=== PATIENT | male | born 1965 | race Caucasian/White ===

== ENCOUNTER 2017-09-02 09:04 | Day surgery (SDC) | payer BC, MEDICAID ==
[2017-09-02] MEDS ORDERED: LIDOCAINE 2% MDV (20MG/ML) 20ML VIAL IV ONE (16:10)
[2017-09-02] MEDS ORDERED: PROPOFOL 10 MG/ML VIAL IV ONE (16:10)
--- NOTE | 2017-09-03 12:31 | Operative Note ---
DATE OF SURGERY: 09/02/2017 REFERRING PROVIDER: Rhett Evangelista DO PREOPERATIVE DIAGNOSIS: Screening. Average risk. POSTOPERATIVE DIAGNOSIS: Sigmoid diverticulosis and sigmoid colon polyp. OPERATION: COLONOSCOPY with cold forceps polypectomy. PROCEDURE: After informed consent was obtained, the patient was placed in the left lateral decubitus position in the endoscopy suite, sedated and monitored by the Department of Anesthesia. Digital rectal exam was unremarkable. A well-lubricated PCF-180 colonoscope was inserted into the rectum and advanced to the cecum. The preparation quality was good to excellent. The cecum, ileocecal valve and appendiceal orifice, ascending colon, transverse colon, and descending colon were free from inflammatory changes, mass lesions, or polyps. In the sigmoid colon, there were scattered diverticula and a diminutive polyp. The polyp was removed with a cold forceps. The sigmoid colon and rectum were otherwise unremarkable. J-turn views of the anorectum were unrevealing. The endoscope was straightened, the rectal ampulla deflated and the endoscope was removed. RECOMMENDATIONS: The patient should follow a high-fiber diet. He will require a repeat exam in 5-10 years pending tissue histology. As always, thank you for allowing me to participate in the health care of your patients. CC: DO HARI Cassidy
== END 2017-09-02 10:43 | disposition home or self-care (01) ==
LOC: HOP 09:04
PROVIDERS: ATTEND Internal Medicine Gastroenterology
DX: Z12.11 Encounter for screening for malignant neoplasm of colon (principal); D12.5 Benign neoplasm of sigmoid colon; K57.30 Diverticulosis of large intestine without perforation or abscess without bleeding